=== PATIENT | female | born 1955 | race Caucasian/White ===

== ENCOUNTER 2020-09-15 11:49 | Inpatient (IN) | payer MEDICARE, OTHER ==
[~2020-09-15] VITALS: Ht 165.1 cm; Wt 97.8 kg
[2020-09-15] MEDS ORDERED: MORPHINE SULFATE 4 MG/ML SYR/VIAL IV ONE (12:00)
[2020-09-15] MEDS ORDERED: ONDANSETRON HCL 4 MG/2 ML VIAL IV ONE (12:00)
[2020-09-15 13:33] LABS: Basophils # (auto) 0 10 ^3/uL (0-0.2); Basophils % (auto) 0.4 % (0.0-2.0); Eosinophils # (auto) 0 10 ^3/uL (0-0.8); Eosinophils % (auto) 0.4 % (0.0-7.0); Hematocrit 36.3 % (36.0-46.0); Hemoglobin 12.5 g/dL (12.2-16.2); Lymphocytes # (auto) 1.2 10 ^3/uL (0.4-5.4); Lymphocytes % (auto) 13.4 % (10.0-50.0); Mean Corpuscular Hemoglobin 30.7 pg (28.0-32.0); Mean Corpuscular Hgb Conc. 34.4 g/dL (32.0-36.0); Mean Corpuscular Volume 89.3 fL (80.0-100.0); Monocytes # (auto) 0.5 10 ^3/uL (0-1.3); Monocytes % (auto) 5.2 % (0.0-12.0); Neutrophils # (auto) 7.2 10 ^3/uL (1.6-8.6); Neutrophils % (auto) 80.6 % (37.0-80.0); Nucleated Red Blood Cells % 0.1 %; Platelet Count (auto) 271 10^3/uL (140-450); Red Blood Cells 4.06 10^6/uL (4.0-5.20); Red Cell Distribution Width 13.8 % (11.8-14.3); White Blood Cell 8.9 10^3/uL (4.4-10.8)
[2020-09-15 13:46] LABS: Albumin 3.6 g/dL (3.4-5.0); Calcium 8.7 mg/dL (8.5-10.1)
[2020-09-15 13:52] LABS: Bilirubin, Total 0.3 mg/dL (0.2-1.0)
[2020-09-15] MEDS ORDERED: IPRATROPIUM BROM 0.5 MG/2.5ML INH SOL NEB PRN (15:15)
[2020-09-15] MEDS ORDERED: HYDROcodone-ACET 5/325MG TAB PO PRN (15:15)
[2020-09-15] MEDS ORDERED: ACETAMINOPHEN 500 MG TAB PO PRN (15:15)
[2020-09-15] MEDS ORDERED: ALBUTEROL SULF 2.5 MG/0.5ML(0.5%) NEB SOLN NEB PRN (15:15)
[2020-09-15] MEDS ORDERED: DOCUSATE SOD 100 MG CAP PO PRN (15:15)
[2020-09-15] MEDS ORDERED: D5W/SOD CHLO 0.9% 1,000 ML IV ONE (15:30)
[2020-09-15] MEDS: ONDANSETRON HCL 4 MG/2 ML VIAL IV PRN ×2 (16:32→20:29)
[2020-09-15] MEDS: MORPHINE SULF INJ 2 MG/ML SYRINGE 1ML IV PRN ×2 (16:33→20:29)
[2020-09-15 18:55] LABS: INR 1.01 (0.9-1.15)
[2020-09-15 19:35] VITALS: BP 128/77
[2020-09-15 22:00] VITALS: BP 127/71
[2020-09-16] VITALS (11 sets, daily range): BP systolic 102–127; BP diastolic 62–82
[2020-09-16] MEDS: MORPHINE SULF INJ 2 MG/ML SYRINGE 1ML IV PRN ×3 (00:31→08:49)
[2020-09-16 06:03] LABS: Urine Bacteria FEW /hpf (None Seen); Urine Blood TRACE /uL (Negative); Urine WBC 2 /hpf (0 - 5)
[2020-09-16] MEDS ORDERED: HYDROmorphone HCL 2 MG/ML VL IV PRN ×3 (09:30→12:30)
[2020-09-16] MEDS ORDERED: fentaNYL CITRATE 100 MCG/2 ML VL ONE (10:14)
[2020-09-16] MEDS ORDERED: MORPHINE SULF(PF) 0.5MG/ML 10ML VIAL ONE (10:14)
[2020-09-16] MEDS ORDERED: BUPIVACAINE/DEXTROSE MPF 0.75% 2 ML AMP IT ONE (10:15)
[2020-09-16] MEDS ORDERED: ONDANSETRON HCL 4 MG/2 ML VIAL ONE (10:15)
[2020-09-16] MEDS ORDERED: DexAMETHasone SOD PHOS 10MG/1ML VIAL INJ ONE (10:15)
[2020-09-16] MEDS ORDERED: MIDAZOLAM HCL 1MG/1ML-2 ML VIAL ONE (10:15)
[2020-09-16] MEDS ORDERED: PROPOFOL 10 MG/ML 20 ML IV ONE (10:15)
[2020-09-16] MEDS ORDERED: EPINEPHrine HCL 1 MG/1 ML AMP ONE (10:15)
[2020-09-16] MEDS ORDERED: ceFAZolin 1GM/50ML 50 ML IV ONE (10:20)
[2020-09-16] MEDS ORDERED: BUPIVACAINE HCL 50 ML ONE (10:20)
[2020-09-16] MEDS ORDERED: TETRACAINE 1% INJ 2 ML VIAL IJ ONE (10:27)
[2020-09-16] MEDS: ceFAZolin 1GM/50ML 50 ML IV ONE ×2 (11:30→11:42)
[2020-09-16] MEDS ORDERED: ONDANSETRON HCL 4 MG/2 ML VIAL IV PRN (12:15)
[2020-09-16] MEDS ORDERED: ACETAMINOPHEN 325 MG TAB PO PRN (12:15)
[2020-09-16] MEDS ORDERED: NALOXONE HCL 0.4 MG/ML VIAL IV PRN (12:30)
[2020-09-16] MEDS ORDERED: METOCLOPRAMIDE HCL 5MG/ml INJ 2ml VIAL IV PRN (12:30)
[2020-09-16] MEDS ORDERED: diphenhdrAMINE HCL 50 MG/1 ML VL IV PRN (12:30)
[2020-09-16] MEDS ORDERED: MORPHINE SULFATE 4 MG/ML SYR/VIAL IV PRN (12:30)
[2020-09-16] MEDS: FAMOTIDINE 20 MG TAB PO SCH (13:30)
[2020-09-16] MEDS: D5W/ SOD CHL 0.9%/KCL 20MEQ 1,000 ML IV SCH ×2 (13:31→22:50)
[2020-09-16] MEDS: LACTATED RINGER'S 1,000 ML IV SCH ×2 (13:48→22:15)
[2020-09-16] MEDS: ceFAZolin 1GM/50ML 50 ML IV SCH ×2 (16:25→21:27)
[2020-09-16] MEDS: DOCUSATE SOD 100 MG CAP PO SCH (21:27)
[2020-09-16] MEDS: HYDROcodone-ACET 10/325MG TAB PO PRN (21:35)
[2020-09-17] MEDS: ceFAZolin 1GM/50ML 50 ML IV SCH (04:00)
[2020-09-17 05:00] VITALS: BP 116/70
[2020-09-17 07:01] LABS: BUN/Creatinine Ratio 8.5; Calcium 8.1 mg/dL (8.5-10.1); Potassium 3.9 mmol/L (3.5-5.1)
[2020-09-17 07:07] LABS: Basophils # (auto) 0 10 ^3/uL (0-0.2); Basophils % (auto) 0.2 % (0.0-2.0); Eosinophils # (auto) 0 10 ^3/uL (0-0.8); Eosinophils % (auto) 0.1 % (0.0-7.0); Hematocrit 28.2 % (36.0-46.0); Lymphocytes # (auto) 1.2 10 ^3/uL (0.4-5.4); Mean Corpuscular Hgb Conc. 35.4 g/dL (32.0-36.0); Mean Corpuscular Volume 90.3 fL (80.0-100.0); Monocytes % (auto) 9.3 % (0.0-12.0); Neutrophils # (auto) 8.4 10 ^3/uL (1.6-8.6); Neutrophils % (auto) 79.4 % (37.0-80.0); Platelet Count (auto) 229 10^3/uL (140-450); Red Blood Cells 3.12 10^6/uL (4.0-5.20); Red Cell Distribution Width 13.5 % (11.8-14.3); White Blood Cell 10.5 10^3/uL (4.4-10.8)
[2020-09-17 09:00] VITALS: BP 108/70
[2020-09-17] MEDS: DOCUSATE SOD 100 MG CAP PO SCH (09:36)
[2020-09-17] MEDS: LACTATED RINGER'S 1,000 ML IV SCH (09:36)
[2020-09-17] MEDS: FAMOTIDINE 20 MG TAB PO SCH (09:37)
[2020-09-17] MEDS: HYDROcodone-ACET 10/325MG TAB PO PRN ×2 (09:37→15:13)
[2020-09-17 13:00] VITALS: BP 120/76
[2020-09-17 17:01] VITALS: BP 141/70
[2020-09-17] MEDS ORDERED: ENOXAPARIN SOD 30 MG/0.3 ML SYRINGE SC SCH (22:00)
== END 2020-09-17 18:30 | disposition home health service (06) | DRG 481 ==
LOC: ER 11:49 → EDBD 11:49 → OVERFLOW 15:04 → CENTRAL 21:15 → TELE-CENTR 09-16 14:37
PROVIDERS: ADMIT Nurse Practitioner Acute Care; ATTEND Internal Medicine
PROC: BQ10ZZZ Fluoroscopy of Right Hip (ICD-10-PCS; 2020-09-16)
PROC: 0QS604Z Reposition Right Upper Femur with Internal Fixation Device, Open Approach (ICD-10-PCS; principal; 2020-09-16 10:33)
DX: S72.141A Displaced intertrochanteric fracture of right femur, initial encounter for closed fracture (principal); E87.1 Hypo-osmolality and hyponatremia; Z20.822 Contact with and (suspected) exposure to COVID-19; M81.0 Age-related osteoporosis without current pathological fracture; J44.9 Chronic obstructive pulmonary disease, unspecified; F17.210 Nicotine dependence, cigarettes, uncomplicated; Z96.642 Presence of left artificial hip joint; M16.11 Unilateral primary osteoarthritis, right hip; W10.8XXA Fall (on) (from) other stairs and steps, initial encounter; Y93.01 Activity, walking, marching and hiking; Y92.098 Other place in other non-institutional residence as the place of occurrence of the external cause; Y99.8 Other external cause status; Z90.710 Acquired absence of both cervix and uterus; Z82.49 Family history of ischemic heart disease and other diseases of the circulatory system; Z79.899 Other long term (current) drug therapy
CPT/HCPCS: 36415; 51702; 71045; 72170; 73501; 73700; 76001; 80048; 80053; 81001; 85025; 85610; 86850; 86900; 86901; 87081; 87426; 93005; 93306; 96361; 96374; 96375; 96376; A4565; G0378; J0171; J0690; J1100; J2250; J2405; J2704; J3490